=== PATIENT | male | born 1945 | race Caucasian/White ===

== ENCOUNTER 2021-05-12 02:25 | Day surgery (SDC) | payer MEDICARE, BC, SELFPAY ==
[2021-04-30 15:21] VITALS: BMI 24.5
--- NOTE | 2021-05-11 10:43 | PM.HPGS ---
History of Present Illness History of Present Illness Consent: Risks, benefits, and alternatives have been discussed and questions answered. Patient agrees to proceed with procedure. Chief complaint: hx of colon polyps Narrative: Torito Banuelos is a 75 year old male who was referred for colon cancer screening he had multiple polyps removed about 5 years ago Review of Systems Review of Systems: All systems reviewed & are unremarkable except as noted in HPI and below PMFSH Social History Social History Smoking packs per day: 1 Smoking cigarettes per day: 20.0 Years smoked: 25 Smoking pack-years: 25.00 Smoking status: Former smoker Tobacco type: cigarettes Alcohol intake: never Substance use: never Substance use type: does not use Living arrangements: with family Spiritual care concerns: No Meds Home Medications and Allergies Home Medications Medication Instructions Recorded Confirmed Type amlodipine-benazepril 1 cap PO DAILY 04/30/21 04/30/21 History finasteride 5 mg PO DAILY 04/30/21 04/30/21 History fluticasone propionate 50 mcg INTRANASAL DAILY 04/30/21 04/30/21 History pravastatin 40 mg PO DAILY 04/30/21 04/30/21 History tamsulosin 0.4 mg PO DAILY 04/30/21 04/30/21 History vitamins A,C,T-aynv-ufpoxa 1 tablet PO DAILY 04/30/21 04/30/21 History [PreserVision AREDS] Allergies Allergy/AdvReac Type Severity Reaction Status Date / Time No Known Allergies Allergy Mild Verified 09/21/10 16:59 Exam Resp: Auscultation: clear to auscultation bilaterally Cardio: Rate: regular rate Rhythm: regular rhythm GI: GI Palp: Yes Soft to palpation and No Tenderness to palpation present (GI) Assessment and Plan Assessment and plan (1) Colon cancer screening: Code(s): Z12.11 - Encounter for screening for malignant neoplasm of colon Status: Acute Assessment and Plan: Colonoscopy with possible biopsy or polypectomy or cautery or injection of substances.
[2021-05-12 09:52] VITALS: BP 149/82; PULSE 73; RESP 18; TEMP 36.2; O2SAT 100; BMI 24.1
--- NOTE | 2021-05-12 10:12 | P.PNAN_ITS ---
Anes - Initial Pre Proc Eval Procedure: Operation Date: 05/12/21 11:00 Proposed Procedures p Screening Colonoscopy - Torito Corona MD Date/Time: 05/12/21 10:12 Surgeon: Torito Corona MD Pre Op Diagnosis: hx of colon polyps Patient Data Age: 75 Gender: M Height: 1.78 m Weight: 76.3 kg Last Vital Signs Temp 36.2 C L 05/12/21 09:52 Pulse 73 05/12/21 09:52 Resp 18 05/12/21 09:52 BP 149/82 H 05/12/21 09:52 Pulse Ox 100 05/12/21 09:52 Allergies Allergy/AdvReac Type Severity Reaction Status Date / Time No Known Allergies Allergy Mild Verified 05/12/21 10:04 Home Medications Medication Instructions Recorded Confirmed Type amlodipine-benazepril 1 cap PO DAILY 04/30/21 05/12/21 History finasteride 5 mg PO DAILY 04/30/21 05/12/21 History fluticasone propionate 50 mcg INTRANASAL DAILY 04/30/21 05/12/21 History pravastatin 40 mg PO DAILY 04/30/21 05/12/21 History tamsulosin 0.4 mg PO DAILY 04/30/21 05/12/21 History vitamins A,C,N-gpen-ufqwve 1 tablet PO DAILY 04/30/21 05/12/21 History [PreserVision AREDS] Patient hx anesthesia problems: none Family hx anesthesia problems: none Results Review: All pre-operative results and documents have been reviewed as part of the pre-operative evaluation. ON LICENSE OF [facility] Past Medical History Medical History (Updated 05/12/21 @ 10:13 by Josias Rivas MD) HTN (hypertension) Hyperlipidemia Surgical History Surgical History (Updated 05/12/21 @ 10:13 by Josias Rivas MD) History of cholecystectomy History of total knee arthroplasty Social History Social History Smoking packs per day: 1 Smoking cigarettes per day: 20.0 Years smoked: 25 Smoking pack-years: 25.00 Smoking status: Former smoker Tobacco type: cigarettes Alcohol intake: never Substance use: never Substance use type: does not use Living arrangements: with family Spiritual care concerns: No Anes - Eval Final PreProcedure Day of Procedure 05/12/21 10:12 Patient weight: normal Heart: regular rate and rhythm Lungs: clear to auscultation Airway: Mallampati scale class II Neurological: alert and oriented Last oral intake: >/= 8 hours ASA classification: II Emergent: no Anesthetic plan: proceed Anesthesia type and monitoring: general GIVS and standard monitoring Results Review: All pre-operative results and documents have been reviewed as part of the pre-operative evaluation. Informed Consent: The patient's anesthetic plan and its attendant risks and benefits were discussed with the patient/family/POA. Questions were solicited and answers provided to the satisfaction of the patient/family/POA.
[2021-05-12] MEDS: LACTATED RINGERS 1,000 ML 150 ML IV CONT (10:15)
[2021-05-12] MEDS: SIMETHICONE ORAL SUSPENSION 20 MG/0.3 ML 30 ML BOTTLE 0.6 ML IRRIGATION (10:50)
[2021-05-12 11:04] VITALS: BP 127/60; PULSE 69; RESP 18; O2SAT 99
--- NOTE | 2021-05-12 11:04 | SUR.OPER ---
TRANSVERSE COLON POLYP NOT RETRIEVED. DR CLINE AWARE, NO FURTHER INSTRUCTIONS GIVEN.
[2021-05-12 11:14] VITALS: BP 127/59; PULSE 60; RESP 20; O2SAT 100
[2021-05-12 11:24] VITALS: BP 146/64; PULSE 61; RESP 16; O2SAT 100
== END 2021-05-12 11:29 | disposition home or self-care (01) ==
PROVIDERS: PCP Internal Medicine; Visit Provider Internal Medicine Gastroenterology
PROC: 0DJD8ZZ Inspection of Lower Intestinal Tract, Via Natural or Artificial Opening Endoscopic (ICD-10-PCS; CPT 45378; principal; 2021-05-12 11:00)
DX: Z12.11 Encounter for screening for malignant neoplasm of colon (principal); K63.5 Polyp of colon; D12.4 Benign neoplasm of descending colon; K57.30 Diverticulosis of large intestine without perforation or abscess without bleeding
CPT/HCPCS: 45385; 88305; J2704; J7120